=== PATIENT | male | born 1990 | race Caucasian/White ===

== ENCOUNTER 2016-12-15 02:40 | Emergency (ER) | payer OTHER ==
[~2016-12-15] VITALS: Ht 165.1 cm; Wt 65.9 kg
--- NOTE | ~2016-12-15 | CR2 ---
[facility]. [facility] A Service of [facility] & [facility] / [facility] RADIOLOGY TEXT RESULTS PATIENT: SEVEN BELLA LOCATION: SED : 88 UNIT #: [id number] AGE: [address]: Vin Rodriguez DO SEX: M ORDER DR: [id number] [place] [id number] E MR#: [id number] Acc #: [id number] NAME: SEVEN BELLA. : 1990 SEX: M STUDY DATE/TIME: 12/15/2016 3:32 UNIT: SED ROOM: STUDY DESCRIPTION: CR Abdomen Acute Series Attending Physician: Vin Rodriguez Ordering Physician: Vin Rodriguez Primary Care Physician: Julita Duncan M.D. MEDICAL IMAGING REPORT This report is preliminary unless electronic signature is present. EXAM Acute abdomen series 12/15/2016 HISTORY 26-year-old male in the ED complaining of 3-day history of left lower quadrant abdomen pain. TECHNIQUE Flat and upright abdomen series with PA upright chest x-ray. FINDINGS Bowel gas pattern is normal. No evidence of bowel obstruction, adynamic ileus or bowel perforation. No visible radiopaque abdominal calculi. Heart size and pulmonary vascularity are normal. The lungs are expanded and clear. IMPRESSION Negative acute abdomen series. Dictated by... Lauro Acosta M.D. THIS IS AN ELECTRONICALLY VERIFIED REPORT Lauro Acosta M.D. at 12/15/2016 5:27 AM PATRICIAW/aayush TD: 12/15/2016 04:58 JOB #: [id number] MEDICAL IMAGING REPORT Page 1 of 1
[~2016-12-15 02:40] MED LIST: CELEXA PO; FLEXERIL PO; IBUPROFEN800 MG PO; MEDROL DOSEPAK4 MG DOB; NAPROXEN PO; NO MEDICATIONS; PHENERGAN DM1 ML PO; ROBAXIN500 MG PO; VIBRAMYCIN100 M1 PO; VOLTAREN75 MG PO; ZOFRAN PO; ZYRTEC-D TABLE1 EACH PO
[2016-12-15 03:17] LABS: URINE SOURCE CLEAN CATCH
[2016-12-15 03:20] LABS: URINE APPEARANCE CLEAR; URINE BILIRUBIN NEG (NEG); URINE BLOOD NEG (NEG); URINE COLOR YELLOW; URINE GLUCOSE NEG (NORM); URINE KETONE NEG (NEG); URINE LEUKOCYTE ESTERASE NEG (NEG); URINE NITRATE NEG (NEG); URINE PROTEIN NEG (NEG); URINE SPECIFIC GRAVITY >=1.030 (1.003-1.035)
[2016-12-15 03:23] LABS: BASOPHIL# 0.1 X10e3 (0-0.3); BASOPHIL% 0.8 % (0-2.5); EOSINOPHIL# 0.4 X10e3 (0-0.7); EOSINOPHIL% 3.7 % (0.0-7.0); HEMATOCRIT 44.7 % (38.0-50.0); HEMOGLOBIN 15.4 gm/dL (13.0-16.0); LYMPHOCYTE# 3.6 X10e3 (1.0-3.5); LYMPHOCYTE% 32.8 % (17.0-45.0); MEAN CELL VOLUME 86.7 FL (83-96); MEAN CORPUSCULAR HGB CONC 34.5 g/dL (30-36); MEAN PLATELET VOLUME 8.2 FL (6.5-11.5); MONOCYTE# 1.2 X10e3 (0-1.0); MONOCYTE% 11.3 % (3.0-12.0); NEUTROPHIL# 5.6 X10e3 (1.5-7.1); NEUTROPHIL% 51.4 % (40-75); PLATELET COUNT 230 X10e3 (140-420); RED BLOOD COUNT 5.15 X10e (3.90-5.60); RED CELL DISTRIBUTION WIDTH 13.8 % (11.0-15.5); WHITE BLOOD COUNT 10.9 X10e3 (4.0-10.5)
[2016-12-15 03:26] LABS: DIFF IND NO; MICRO INDICATED? NO
[2016-12-15 03:40] LABS: ALBUMIN SERUM 4.4 g/dL (3.5-5.0); ALKALINE PHOSPHATASE 70 U/L (32-92); ALT (SGPT) 21 U/L (10-40); AST (SGOT) 20 U/L (10-42); BILIRUBIN,TOTAL 0.3 mg/dL (0.2-2.0); BLOOD UREA NITROGEN 11 mg/dL (9-23); BUN/CREATININE RATIO 9.16; CALCIUM SERUM 9.3 mg/dL (8.4-10.2); CARBON DIOXIDE 29 mmol/L (22-31); CHLORIDE 104 mmol/L (100-111); CREATININE SERUM 1.2 mg/dL (0.6-1.4); GLOM FILT RATE Estimated 82.4 mL/min (>60); GLUCOSE FASTING 129 mg/dL (70-110); LIPASE 36 U/L (22-51); POTASSIUM 3.5 mmol/L (3.5-5.1); PROTEIN TOTAL SERUM 7.5 g/dL (6.0-8.3); SODIUM 137 mmol/L (135-145)
[2016-12-15 03:46] LABS: BILIRUBIN, DIRECT <0.1 mg/dL (0.0-0.2); BILIRUBIN,INDIRECT 0.2 mg/dL (0.0-0.9)
== END 2016-12-15 04:14 | disposition home or self-care (01) ==
LOC: SED 02:40
PROVIDERS: Emergency Medicine
DX: K59.00 Constipation, unspecified (principal); Z79.899 Other long term (current) drug therapy
CPT/HCPCS: 36415; 74022; 80048; 80076; 81003; 83690; 85025; 96361; 96374; 99284; J1885